=== PATIENT | female | born 1990 | race African-American/Black ===

== ENCOUNTER 2023-09-21 10:16 | Emergency (ER) | payer MEDICAID ==
[~2023-09-21] VITALS: Ht 162.6 cm; Wt 61.4 kg
[~2023-09-21 10:16] MED LIST: DEPO-PROVE150 MG/1 M IM; DOXYCYCLINE 10100 MG PO; FLAGYL500 MG PO; NAPROSYN500 MG PO; ORTHO-CYCLEN 351 TAB PO; PHENERGAN 25 TA25 MG PO; SPRINTEC 35 MCG1 TAB PO; ZOFRAN ODT4 MG PO
[2023-09-21 10:29] VITALS: TEMP 98.1
[2023-09-21 10:44] LABS: COLLECTION METHOD CLEAN CATCH
[2023-09-21 10:55] LABS: PH 5.5 (5.0-8.5); URINE APPEARANCE CLEAR (CLEAR/HAZY); URINE BLOOD TRACE (NEGATIVE); URINE COLOR YELLOW (YELLOW); URINE GLUCOSE NEGATIVE (NEGATIVE); URINE KETONE NEGATIVE (NEGATIVE); URINE NITRATE NEGATIVE (NEGATIVE); URINE PROTEIN(semi-quant) NEGATIVE (NEGATIVE)
[2023-09-21 11:02] LABS: BASO % 0.8 % (0.0-2.0); EOS # 0.1 K/mm3 (0.0-0.7); EOS % 1.8 % (0.0-4.0); GRAN # 2.1 K/mm3 (1.4-6.5); HEMATOCRIT 40.6 % (37.0-47.0); HEMOGLOBIN 13.5 g/dl (12.5-16.0); LYMPH # 2.5 K/mm3 (1.2-3.4); LYMPH % 47.9 % (20.0-51.0); MEAN CELL VOLUME 91 fl (80.0-100.0); MEAN CORPUSCULAR HEMOGLOBIN 30 pg (27-31); MEAN CORPUSCULAR HGB CONC 33 g/dl (33.0-37.0); MONO # 0.5 K/mm3 (0.1-0.6); MONO % 9.3 % (1.7-9.3); PLATELET COUNT 233 K/mm3 (130-400); RED BLOOD COUNT 4.44 M/mm3 (4.10-5.30); REDCELL DISTRIBUTION WIDTH-CV 11.8 % (11.5-14.5)
[2023-09-21 11:19] LABS: ALBUMIN 3.8 g/dL (3.5-5.0); BILIRUBIN,TOTAL 0.6 mg/dL (0.2-1.2); CALCIUM 9.3 mg/dL (8.4-10.2); CREATININE, serum 0.79 mg/dL (0.57-1.11)
[2023-09-21] MEDS ORDERED: CEPHALEXIN500 M1 PO (11:29)
[2023-09-21 11:44] VITALS: BP 126/90; PULSE 82
== END 2023-09-21 12:00 | disposition home or self-care (01) ==
LOC: COL.ER 10:16
PROVIDERS: Physician Assistant
DX: N39.0 Urinary tract infection, site not specified (principal)